=== PATIENT | female | born 1990 | race Caucasian/White ===

== ENCOUNTER 2019-02-09 13:36 | Emergency (ER) | payer OTHER ==
[2019-02-09 14:06] LABS: Urine Blood NEGATIVE (NEG); Urine Glucose NEGATIVE (NEG); Urine Protein NEGATIVE (NEG); Urine pH 6.5 (5.0-7.0)
[2019-02-09] MEDS ORDERED: ONDANSETRON 4 MG/2 ML VIAL ONE (14:19)
[2019-02-09] MEDS ORDERED: MORPHINE 4 MG/ML SYR ONE (14:19)
[2019-02-09] MEDS ORDERED: FAMOTIDINE 20 MG/2 ML VIAL IV ONE (14:19)
[2019-02-09] MEDS ORDERED: NA CHLORIDE 0.9% 1,000 ML ONE (14:19)
[2019-02-09 14:25] LABS: Absolute Lymphocytes (CBC) 2.2 K/uL (0.7-4.9); Absolute Monocytes 0.7 K/uL (0.1-1.3); Absolute Neutrophil 5.5 K/uL (1.8-8.0); Basophils % 0.4 % (0-1.3); Eosinophils % 1.4 % (0-4.4); Hematocrit 41.8 % (36.0-45.0); Lymphocytes % 25.6 % (15.3-44.8); MPV 7.3 fL (7.6-11.3); RBC Red Blood Cell Count 4.81 M/uL (3.86-4.86)
[2019-02-09 14:53] LABS: Albumin 3.9 g/dL (3.4-5.0); Bilirubin Direct 0.2 mg/dL (0-0.2); Bilirubin Total 0.8 mg/dL (0.2-1.0); Potassium 3.9 mmol/L (3.5-5.1); Protein, Total 7.8 g/dL (6.4-8.2)
--- NOTE | 2019-02-09 16:35 | RAD REPORT ---
EXAM DESCRIPTION: CT - Abdomen Pelvis W Contrast - 02/09/2019 4:16 pm CLINICAL HISTORY: Abdominal pain/vomiting. COMPARISON: none. TECHNIQUE: Computed axial tomography of the abdomen pelvis was obtained. 100 cc Isovue-300 was admin istered intravenously. Oral contrast wasgiven All CT scans are performed using dose optimization technique as appropriate and may include automated exposure control or mA/KV adjustment according to patient size. FINDINGS: The liver is enlarged. Fatty liver Borderline splenomegaly Pancreas, adrenals and kidneys appear unremarkable Spleen, pancreas, adrenal and left kidney appear unremarkable. Borderline mild right hydronephrosis There is no evidence of diverticulitis. IMPRESSION: Mild hepatomegaly. Fatty infiltration of liver Borderline splenomegaly Borderline mild right hydronephrosis. Ureteral calculus is not seen
[2019-02-09] MEDS ORDERED: MAGNE/ALUM HYDROXD 30 ML UCUP ONE (17:12)
[2019-02-09] MEDS ORDERED: LIDOCAINE VISCOUS 2% SOLN 15 ML UDC ONE (17:12)
--- NOTE | 2019-02-09 17:14 | EDPHYS ---
Physician Documentation [facility] Name: Bonnie Haile Age: 28 yrs Sex: Female : 1990 Arrival Date: 02/09/2019 Time: 13:40 Bed 6 Private MD: ED Physician Derrick Durham HPI: 02/09 14:05 This 28 yrs old Female presents to ER via Ambulatory with complaints of cp Abdominal Pain, Back Pain, Nausea. 14:05 The patient presents with abdominal pain in the epigastric area, in the left upper cp quadrant. 14:05 Onset: The symptoms/episode began/occurred this morning. The symptoms radiate to left cp back. 14:05 Associated signs and symptoms: Pertinent positives: nausea. 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 - Social history:: Smoking status: Patient/guardian denies using tobacco. - Ebola Screening: : No symptoms or risks identified at this time. ROS: 14:10 Constitutional: Negative for body aches, chills, fever, poor PO intake. cp 14:10 Eyes: Negative for injury, pain, redness, and discharge. cp 14:10 ENT: Negative for drainage from ear(s), ear pain, sore throat, difficulty swallowing, difficulty handling secretions. 14:10 Cardiovascular: Negative for chest pain, palpitations. 14:10 Respiratory: Negative for cough, shortness of breath, wheezing. 14:10 Abdomen/GI: Positive for abdominal pain, nausea, of the epigastric area and left upper quadrant, Negative for diarrhea, constipation, anorexia, dysphagia, black/tarry stool, rectal bleeding. 14:10 Back: Positive for radiated pain, of the left mid back, Negative for injury or acute deformity, decreased range of motion. 14:10 : Negative for urinary symptoms, pelvic pain, vaginal bleeding, vaginal discharge. 14:10 Skin: Negative for cellulitis, diaphoresis, rash. 14:10 Neuro: Negative for altered mental status, dizziness, headache, weakness. 14:10 All other systems are negative. Exam: 14:15 Constitutional: The patient appears in no acute distress, alert, awake, non-toxic, well cp developed, well nourished, uncomfortable. 14:15 Head/Face: Normocephalic, atraumatic. cp 14:15 Eyes: Periorbital structures: appear normal, Conjunctiva: normal, no exudate, no injection, Sclera: no appreciated abnormality, Lids and lashes: appear normal, bilaterally. 14:15 ENT: External ear(s): are unremarkable, Nose: is normal, Mouth: Lips: moist, Oral mucosa: pink and intact, moist, Posterior pharynx: is normal, airway is patent, no erythema, no exudate. 14:15 Neck: ROM/movement: is normal, is supple, without pain, no range of motions limitations, no nuchal rigidity. 14:15 Chest/axilla: Inspection: normal, Palpation: is normal, no crepitus, no tenderness. 14:15 Cardiovascular: Rate: normal, Rhythm: regular. 14:15 Respiratory: the patient does not display signs of respiratory distress, Respirations: normal, no use of accessory muscles, no retractions, no splinting, no tachypnea, labored breathing, is not present, Breath sounds: are clear throughout, no decreased breath sounds, no stridor, no wheezing. 14:15 Abdomen/GI: Inspection: abdomen appears normal, Bowel sounds: active, all quadrants, Palpation: soft, in all quadrants, moderate abdominal tenderness, in the epigastric area and left upper quadrant, rebound tenderness, is not appreciated, involuntary guarding, is elicited in the epigastric area and left upper quadrant. 14:15 Back: pain, that is moderate, of the left mid back, ROM is normal. 14:15 Skin: no rash present. Vital Signs: 13:48 BP 140 / 110; Pulse 85; Resp 16; Temp 98.0; Pulse Ox 98% on R/A; la1 14:41 BP 143 / 97; Pulse 83; Resp 17; Pulse Ox 98% on R/A; Pain 7/10; tw2 14:43 Pain 7/10; tw2 15:37 BP 143 / 97; Pulse 72; Resp 17; Pulse Ox 98% on R/A; tw2 17:02 BP 138 / 98; Pulse 93; Resp 17; Pulse Ox 100% on R/A; tw2 MDM: 13:49 Patient medically screened. cp 14:30 Differential diagnosis: bowel obstruction, cholecystitis, Cholelithiasis, cp diverticulitis, gastritis, pancreatitis, Peptic Ulcer Disease, Perf. Duodenal Ulcer, Perf. Gastric Ulcer, Ureterolithiasis, urinary tract infection. 17:02 Data reviewed: vital signs, nurses notes, lab test result(s), radiologic studies, CT cp scan. 02/09 14:00 Order name: Urine Dipstick--Ancillary (enter results); Complete Time: 15:13 bd 02/09 14:00 Order name: Urine --Ancillary (enter results); Complete Time: 15:13 bd 02/09 14:05 Order name: Basic Metabolic Panel; Complete Time: 15:13 cp 02/09 15:13 Interpretation: Normal except: CL 109; GFR 80. cp 02/09 14:05 Order name: CBC with Diff; Complete Time: 15:13 cp 02/09 14:05 Order name: Creatinine for Radiology; Complete Time: 15:13 cp 02/09 14:05 Order name: Hepatic Function; Complete Time: 15:13 cp 02/09 14:05 Order name: Lipase; Complete Time: 15:13 cp 02/09 14:05 Order name: IV Saline Lock; Complete Time: 14:19 cp 02/09 14:05 Order name: CT Abd/Pelvis - W/Contrast; Complete Time: 16:53 cp 02/09 14:05 Order name: Labs collected and sent; Complete Time: 14:19 cp 02/09 16:54 Order name: PO challenge; Complete Time: 17:23 cp Administered Medications: 14:13 Drug: Zofran 4 mg Route: IVP; Site: right antecubital; tw2 14:43 Follow up: Response: No adverse reaction; Nausea is decreased tw2 14:13 Drug: NS 0.9% 1000 ml Route: IV; Rate: 1 bolus; Site: right antecubital; tw2 16:00 Follow up: Response: No adverse reaction; IV Status: Completed infusion; IV Intake: tw2 1000ml 14:15 Drug: Pepcid 20 mg Route: IVP; Site: right antecubital; tw2 14:43 Follow up: Response: No adverse reaction tw2 14:18 Drug: morphine 4 mg Route: IVP; Site: right antecubital; tw2 14:43 Follow up: Pain 7/10 Adult; Response: No adverse reaction; Pain is decreased tw2 17:02 Drug: GI Cocktail without - (Maalox Suspension 30 ml, Lidocaine Liquid 2 % 15 tw2 ml) Route: PO; 17:23 Follow up: Response: No adverse reaction tw2 Disposition: 02/09/19 17:14 Discharged to Home. Impression: Upper abdominal pain, unspecified. - Condition is Stable. - Discharge Instructions: Abdominal Pain, Adult. - Prescriptions for Protonix 40 mg Oral Tablet, Delayed Release (E.C.) - take 1 tablet by ORAL route once daily; 20 tablet. Zofran 4 mg Oral Tablet - take 1 tablet by ORAL route every 12 hours As needed; 20 tablet. Bentyl 20 mg Oral Tablet - take 2 tablets by ORAL route every 6 hours As needed; 30 tablet. - Medication Reconciliation Form, Thank You Letter, Antibiotic Education, Prescription Opioid Use, Work release form, Family Work Release form. - Follow up: Private Physician; When: 2 - 3 days; Reason: Recheck today's complaints. - Problem is new. - Symptoms have improved. Signatures: Dispatcher [employer] EDSD Sami Her RN RN la1 Braeden Og PA PA cp Yen Camarena RN RN tw2 Corrections: (The following items were deleted from the chart) 17:24 17:14 02/09/2019 17:14 Discharged to Home. Impression: Upper abdominal pain, tw2 unspecified. Condition is Stable. Forms are Work release form, Family Work Release, Medication Reconciliation Form, Thank You Letter, Antibiotic Education, Prescription Opioid Use. Follow up: Private Physician; When: 2 - 3 days; Reason: Recheck today's complaints. Problem is new. Symptoms have improved. cp
--- NOTE | 2019-02-09 17:14 | ER ---
Nurse's Notes [facility] Name: Bonnie Haile Age: 28 yrs Sex: Female : 1990 Arrival Date: 02/09/2019 Time: 13:40 Bed 6 Private MD: Diagnosis: Upper abdominal pain, unspecified Presentation: 02/09 13:45 Presenting complaint: Patient states: Started feeling bad yesterday, woke up today and la1 started having upper abd pain that radiates around the side with nausea. Transition of care: patient was not received from another setting of care. Onset of symptoms was February 09, 2019. Risk Assessment: Do you want to hurt yourself or someone else? Patient reports no desire to harm self or others. Initial Sepsis Screen: Does the patient meet any 2 criteria? No. Patient's initial sepsis screen is negative. Does the patient have a suspected source of infection? No. Patient's initial sepsis screen is negative. Care prior to arrival: None. 13:45 Method Of Arrival: Ambulatory la1 13:45 Acuity: CARLY 3 la1 Triage Assessment: 13:50 General: Appears in no apparent distress. uncomfortable, Behavior is anxious. Pain: tw2 Complains of pain in abdomen. GI: Reports nausea. 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 - Social history:: Smoking status: Patient/guardian denies using tobacco. - Ebola Screening: : No symptoms or risks identified at this time. Screenin:51 Abuse screen: Denies threats or abuse. Nutritional screening: No deficits noted. tw2 Tuberculosis screening: No symptoms or risk factors identified. Fall Risk None identified. Assessment: 14:20 General: Appears uncomfortable, Behavior is anxious. Pain: Complains of pain in tw2 abdomen. Neuro: Level of Consciousness is awake, alert, obeys commands, Oriented to person, place, time, situation. Cardiovascular: Heart tones S1 S2 Patient's skin is warm and dry. Respiratory: Airway is patent Respiratory effort is even, unlabored, Respiratory pattern is Breath sounds are clear bilaterally. GI: Bowel sounds present X 4 quads. Abd is soft X 4 quads Reports lower abdominal pain, upper abdominal pain, diarrhea, nausea. : No signs and/or symptoms were reported regarding the genitourinary system. EENT: No signs and/or symptoms were reported regarding the EENT system. Derm: No signs and/or symptoms reported regarding the dermatologic system. Musculoskeletal: Range of motion: intact in all extremities. 14:47 Reassessment: CT Bonnie,[employer] notified pt completed oral contrast at this time. tw2 15:37 Reassessment: Patient appears in no apparent distress at this time. Patient and/or tw2 family updated on plan of care and expected duration. Pain level reassessed. Patient is alert, oriented x 3, equal unlabored respirations, skin warm/dry/pink. Patient states feeling better. Patient states symptoms have improved. 16:32 Reassessment: Patient appears in no apparent distress at this time. Patient and/or tw2 family updated on plan of care and expected duration. Pain level reassessed. Patient is alert, oriented x 3, equal unlabored respirations, skin warm/dry/pink. 16:32 Reassessment: No changes from previously documented assessment. tw2 17:03 Reassessment: Patient appears in no apparent distress at this time. Patient and/or tw2 family updated on plan of care and expected duration. Pain level reassessed. Patient is alert, oriented x 3, equal unlabored respirations, skin warm/dry/pink. Patient states feeling better. Patient states symptoms have improved. 17:03 Reassessment: provider at bedside at this time with results. tw2 17:23 Reassessment: Patient appears in no apparent distress at this time. No changes from tw2 previously documented assessment. Patient and/or family updated on plan of care and expected duration. Pain level reassessed. Patient is alert, oriented x 3, equal unlabored respirations, skin warm/dry/pink. Patient states feeling better. Patient states symptoms have improved. Vital Signs: 13:48 BP 140 / 110; Pulse 85; Resp 16; Temp 98.0; Pulse Ox 98% on R/A; la1 14:41 BP 143 / 97; Pulse 83; Resp 17; Pulse Ox 98% on R/A; Pain 7/10; tw2 14:43 Pain 7/10; tw2 15:37 BP 143 / 97; Pulse 72; Resp 17; Pulse Ox 98% on R/A; tw2 17:02 BP 138 / 98; Pulse 93; Resp 17; Pulse Ox 100% on R/A; tw2 ED Course: 13:40 Patient arrived in ED. mr 13:46 Triage completed. la1 13:46 Arm band placed on left wrist. la1 13:49 Braeden Og PA is PHCP. cp 13:49 Derrick Durham MD is Attending Physician. cp 13:50 Yen Camarena RN is Primary Nurse. tw2 13:51 Bed in low position. Call light in reach. Adult w/ patient. Pulse ox on. NIBP on. tw2 14:13 Inserted saline lock: 22 gauge in right antecubital area, using aseptic technique. tw2 Blood collected. 16:16 CT Abd/Pelvis - W/Contrast In Process Unspecified. EDMS 17:24 No provider procedures requiring assistance completed. IV discontinued, intact, tw2 bleeding controlled, No redness/swelling at site. Pressure dressing applied. Administered Medications: 14:13 Drug: Zofran 4 mg Route: IVP; Site: right antecubital; tw2 14:43 Follow up: Response: No adverse reaction; Nausea is decreased tw2 14:13 Drug: NS 0.9% 1000 ml Route: IV; Rate: 1 bolus; Site: right antecubital; tw2 16:00 Follow up: Response: No adverse reaction; IV Status: Completed infusion; IV Intake: tw2 1000ml 14:15 Drug: Pepcid 20 mg Route: IVP; Site: right antecubital; tw2 14:43 Follow up: Response: No adverse reaction tw2 14:18 Drug: morphine 4 mg Route: IVP; Site: right antecubital; tw2 14:43 Follow up: Pain 7/10 Adult; Response: No adverse reaction; Pain is decreased tw2 17:02 Drug: GI Cocktail without - (Maalox Suspension 30 ml, Lidocaine Liquid 2 % 15 tw2 ml) Route: PO; 17:23 Follow up: Response: No adverse reaction tw2 Intake: 16:00 IV: 1000ml; Total: 1000ml. tw2 Outcome: 17:14 Discharge ordered by . abril 17:24 Discharged to home ambulatory, with significant other. tw2 17:24 Condition: stable 17:24 Discharge instructions given to patient, significant other, Instructed on discharge instructions, follow up and referral plans. no drinking with medication, no driving heavy equipment, medication usage, Demonstrated understanding of instructions, follow-up care, medications, Prescriptions given X 3. 17:24 Patient left the ED. tw2 Signatures: Dispatcher [employer] EDVT Carrie Barth Lee, RN RN la1 Braeden Og PA PA cp Wise, Tara, RN RN tw2
== END 2019-02-09 17:24 | disposition home or self-care (01) ==
LOC: ER 13:36
DX: R10.13 Epigastric pain (principal); E05.90 Thyrotoxicosis, unspecified without thyrotoxic crisis or storm
CPT/HCPCS: 36415; 74177; 80048; 80076; 81003; 81025; 83690; 85025; J2405; J7030; Q9967